=== PATIENT | female | born 1960 | race Caucasian/White ===

== ENCOUNTER → 2016-11-24 | Outpatient (CLI) | payer OTHER ==
[~2016-11-24] MED LIST: ASPIRIN E.C. 8181 MG PO; CALTRATE-600 W600 MG PO; CENTRUM1 TAB PO; ELAVIL100 MG PO; GLUCOPHAGE1000 MG PO; LANTUS100 U/ML SQ; NAPROXEN EC500 MG PO; NO HOME MEDICATIONS; NORCO 325 MG-7.1 TAB PO; TESSALON PERLE100 MG PO; ZESTRIL 5MG5 MG PO; ZOCOR 40MG40 MG PO
== END ==
LOC: SUN.DIA 09:30
DX: E11.65 Type 2 diabetes mellitus with hyperglycemia (principal); Z79.84 Long term (current) use of oral hypoglycemic drugs; Z79.4 Long term (current) use of insulin; E66.9 Obesity, unspecified; Z68.42 Body mass index [BMI] 45.0-49.9, adult; Z71.3 Dietary counseling and surveillance; I10 Essential (primary) hypertension; I51.9 Heart disease, unspecified; I25.10 Atherosclerotic heart disease of native coronary artery without angina pectoris; Z87.891 Personal history of nicotine dependence

== ENCOUNTER → 2016-11-26 | Outpatient (CLI) | payer OTHER ==
[~2016-11-26] VITALS: Ht 162.6 cm; Wt 123.6 kg
[2016-11-26 15:05] VITALS: BP 134/80; PULSE 76
[2016-11-26 15:26] VITALS: BP 134/80; PULSE 76
== END ==
LOC: LIGHT 15:00
DX: E88.81 Metabolic syndrome and other insulin resistance (principal); E11.9 Type 2 diabetes mellitus without complications; E66.01 Morbid (severe) obesity due to excess calories; Z68.42 Body mass index [BMI] 45.0-49.9, adult; I10 Essential (primary) hypertension

== ENCOUNTER → 2016-12-07 | Outpatient (CLI) | payer OTHER | LOC: SUN.DIA 09:35 | DX: E11.65 Type 2 diabetes mellitus with hyperglycemia (principal); E66.9 Obesity, unspecified; Z68.42 Body mass index [BMI] 45.0-49.9, adult; Z79.4 Long term (current) use of insulin; Z79.84 Long term (current) use of oral hypoglycemic drugs; Z71.3 Dietary counseling and surveillance; I10 Essential (primary) hypertension; F17.210 Nicotine dependence, cigarettes, uncomplicated ==

== ENCOUNTER → 2017-02-08 | Outpatient (CLI) | payer OTHER | LOC: SUN.DIA 11:10 | DX: E11.65 Type 2 diabetes mellitus with hyperglycemia (principal); Z68.42 Body mass index [BMI] 45.0-49.9, adult; Z71.3 Dietary counseling and surveillance; I10 Essential (primary) hypertension; Z79.4 Long term (current) use of insulin; Z79.84 Long term (current) use of oral hypoglycemic drugs; F17.210 Nicotine dependence, cigarettes, uncomplicated ==

== ENCOUNTER → 2017-05-18 | Outpatient (CLI) | payer OTHER | LOC: LIGHT 12-10 09:39 → SUN.DIA 14:30 | DX: E11.9 Type 2 diabetes mellitus without complications (principal); Z79.4 Long term (current) use of insulin; I11.9 Hypertensive heart disease without heart failure; E66.9 Obesity, unspecified; Z68.42 Body mass index [BMI] 45.0-49.9, adult; Z71.3 Dietary counseling and surveillance; F17.210 Nicotine dependence, cigarettes, uncomplicated | CPT/HCPCS: G0108 ==

== ENCOUNTER → 2017-09-27 | Outpatient (CLI) | payer BC | LOC: SUN.DIA 09-23 09:09 | DX: E11.9 Type 2 diabetes mellitus without complications (principal); Z79.4 Long term (current) use of insulin; I11.9 Hypertensive heart disease without heart failure; E66.9 Obesity, unspecified; Z68.42 Body mass index [BMI] 45.0-49.9, adult; Z71.3 Dietary counseling and surveillance; F17.210 Nicotine dependence, cigarettes, uncomplicated | CPT/HCPCS: G0108 ==

== ENCOUNTER 2017-12-14 10:27 | Outpatient (RCR) | payer OTHER | END 2018-02-25 09:51 | disposition home or self-care (01) | LOC: WSOH 10:27 | DX: S70.01XA Contusion of right hip, initial encounter (principal); S40.011A Contusion of right shoulder, initial encounter; M54.5 Low back pain; F17.210 Nicotine dependence, cigarettes, uncomplicated; Y04.1XXA Assault by human bite, initial encounter; Y04.2XXA Assault by strike against or bumped into by another person, initial encounter; Y93.F9 Activity, other caregiving; Y92.811 Bus as the place of occurrence of the external cause; Y99.0 Civilian activity done for income or pay; Z79.01 Long term (current) use of anticoagulants; Z88.1 Allergy status to other antibiotic agents ==

== ENCOUNTER → 2017-12-17 | Outpatient (CLI) | payer BC | LOC: MC.RAD 13:16 | DX: Z12.31 Encounter for screening mammogram for malignant neoplasm of breast (principal) ==

== ENCOUNTER → 2018-04-05 | Outpatient (CLI) | payer BC | LOC: SUN.DIA 10:24 | DX: E11.9 Type 2 diabetes mellitus without complications (principal); Z79.4 Long term (current) use of insulin; I11.9 Hypertensive heart disease without heart failure; E66.9 Obesity, unspecified; Z68.42 Body mass index [BMI] 45.0-49.9, adult; Z71.3 Dietary counseling and surveillance; F17.210 Nicotine dependence, cigarettes, uncomplicated | CPT/HCPCS: G0108 ==

== ENCOUNTER 2019-02-18 13:21 | Inpatient (IN) | payer BC ==
[2019-02-18] VITALS (173 sets, daily range): BP systolic 123–139; BP diastolic 67–88; PULSE 93–100; TEMP 98.6–98.9; O2SAT 84–100
[~2019-02-18] VITALS: Ht 162.6 cm; Wt 107.0 kg
[2019-02-18 14:50] LABS: BASO % 0.2 % (0.0-2.0); EOS # 0.2 (0.0-0.7); EOS % 1.8 % (0-4.0); GRAN # 5.4 (1.4-6.5); GRAN % 59.8 % (42.2-75.2); HEMOGLOBIN 11.9 g/dl (12.5-16.0); LYMPH # 2.9 (1.2-3.4); LYMPH % 32.3 % (20.0-51.0); MEAN CELL VOLUME 93 fl (80.0-100.0); MEAN CORPUSCULAR HEMOGLOBIN 30 pg (27.0-31.0); MEAN CORPUSCULAR HGB CONC 32 g/dl (33.0-37.0); MONO # 0.5 (0.1-0.6); MONO % 5.6 % (1.7-9.3); PLATELET COUNT 288 K/mm3 (130-400); RED BLOOD COUNT 3.96 M/mm3 (4.10-5.30); REDCELL DISTRIBUTION WIDTH-CV 15.2 % (11.5-14.5)
[2019-02-18 14:52] LABS: HEMATOCRIT 36.7 % (37.0-47.0); INR 1.2 (0.8-3.0); PROTHROMBIN TIME 13.2 SECONDS (9.7-12.8)
[2019-02-18] MEDS ORDERED: BIOTIN5000 MCG PO (14:58)
[2019-02-18 14:59] LABS: ALBUMIN 3.7 gm/dL (3.5-5.0); BILIRUBIN,TOTAL 0.4 mg/dL (0.0-1.0); C-REACTIVE PROTEIN 2.2 mg/dL (0.0-0.9); CALCIUM 9.7 mg/dL (8.4-10.2); CREATININE, serum 0.69 (0.52-1.25); POTASSIUM 4.3 mmol/L (3.4-5.0); TOTAL PROTEIN 7.3 gm/dL (6.4-8.2)
[2019-02-18] MEDS ORDERED: GLUCOTROL10 MG PO (14:59)
[2019-02-18 15:08] LABS: TROPONIN-I 0.026 ng/mL (0.000-0.035)
--- NOTE | 2019-02-18 18:00 | NUR ---
Pt arrived to room at this time. Oriented to room and ICU policies. Pt will call order for food. Pt is very chatty, able to sit at side of bed and talk non stop without getting short of breath. Up to commode SBA, urine yellow and clear from lasix. Pain is 2/10 to L flank, lower chest area. Nitro gtt at 10 mcg/min to LH. Will give bedside shift report to nightshift nurse who will resume care.
[2019-02-18] MEDS ORDERED: [UNRECOGNIZED DRUG - OTHER] PO (18:12)
[2019-02-18] MEDS ORDERED: GOLDEN SEAL RO325 MG PO (18:13)
[2019-02-18] MEDS ORDERED: MELATONIN5 M1 PO (20:08)
[2019-02-19] VITALS (802 sets, daily range): BP systolic 103–145; BP diastolic 50–78; PULSE 78–93; TEMP 97.8–99.9; O2SAT 76–100
--- NOTE | 2019-02-19 04:08 | NUR ---
SPO2 88% 2 LPM BI TO HOME CPAP. INCREASED TO 3 LPM.
[2019-02-19 05:57] LABS: BASO % 0.2 % (0.0-2.0); EOS # 0.2 (0.0-0.7); EOS % 1.9 % (0-4.0); GRAN # 4.3 (1.4-6.5); GRAN % 45.4 % (42.2-75.2); HEMOGLOBIN 11.2 g/dl (12.5-16.0); LYMPH # 4.4 (1.2-3.4); LYMPH % 45.8 % (20.0-51.0); MEAN CELL VOLUME 92 fl (80.0-100.0); MEAN CORPUSCULAR HEMOGLOBIN 30 pg (27.0-31.0); MEAN CORPUSCULAR HGB CONC 32 g/dl (33.0-37.0); MEAN PLATELET VOLUME 10.3 fl (7.4-10.4); MONO # 0.6 (0.1-0.6); MONO % 6.3 % (1.7-9.3); PLATELET COUNT 275 K/mm3 (130-400); RED BLOOD COUNT 3.77 M/mm3 (4.10-5.30); REDCELL DISTRIBUTION WIDTH-CV 15.3 % (11.5-14.5)
[2019-02-19 06:00] LABS: HEMATOCRIT 34.6 % (37.0-47.0)
[2019-02-19 06:07] LABS: CALCIUM 9.4 mg/dL (8.4-10.2); CHOLESTEROL RISK RATIO 5.8; CREATININE, serum 0.82 (0.52-1.25); POTASSIUM 3.3 mmol/L (3.4-5.0)
[2019-02-19 06:25] LABS: TROPONIN-I 0.046 ng/mL (0.000-0.035)
--- NOTE | 2019-02-19 06:25 | NUR ---
CRITICAL OF TROPONIN 0.046 REPORTED TO MARY VILLARREAL. NO NEW ORDERS GIVEN AT THIS TIME.
--- NOTE | 2019-02-19 07:15 | NUR ---
Report received from ROBERT Catherine. Pt in bed resting, states she did not sleep much and wants to rest a bit longer, leonel lcontinue to monitor.
--- NOTE | 2019-02-19 10:30 | NUR ---
Assessment charted. Pt tired from lack of sleep but states she feels better todya. has pain in L flank/chest that "doesn't go away, its a constant numbness pain". Dr. Morgan here and discussed plan for heart cath tomorrow, pt agreeable. Nitro gtt continues at 10 mcg. Pt denies needs, will continue to monitor.
--- NOTE | 2019-02-19 13:29 | NUR ---
Patient lives at home with family in [place], [place] and she plans to return home upon discharge. Patient's family is supportive and her daughter (Noemi) contact number is [phone]. 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 Patient's primary care physician is Dr. Juaquin Phillips, her pharmacy is [facility], and she does have advance directives completed. No further needs at this time and social servies will follow as needed.
--- NOTE | 2019-02-19 18:50 | NUR ---
Pt up at side of bed to eat and doing well. Still gets short of breath with exertion when getting up to go to bathroom. Has continuously had high blood sugars that is being controlled with Novolog. Pt had a bed bath independently with clean sheets. Will continue to monitor until giving bedside report to nightshift nurse.
[2019-02-20] VITALS (759 sets, daily range): BP systolic 97–133; BP diastolic 55–103; PULSE 71–91; TEMP 97.5–99.2; O2SAT 60–100
[2019-02-20 05:01] LABS: BASO % 0.3 % (0.0-2.0); EOS # 0.2 (0.0-0.7); EOS % 1.9 % (0-4.0); GRAN # 5.5 (1.4-6.5); LYMPH % 38.5 % (20.0-51.0); MEAN CELL VOLUME 93 fl (80.0-100.0); MEAN CORPUSCULAR HEMOGLOBIN 30 pg (27.0-31.0); MEAN CORPUSCULAR HGB CONC 33 g/dl (33.0-37.0); MEAN PLATELET VOLUME 9.9 fl (7.4-10.4); MONO # 0.6 (0.1-0.6); MONO % 5.9 % (1.7-9.3); PLATELET COUNT 258 K/mm3 (130-400); RED BLOOD COUNT 3.63 M/mm3 (4.10-5.30); REDCELL DISTRIBUTION WIDTH-CV 15.3 % (11.5-14.5)
[2019-02-20 05:03] LABS: HEMATOCRIT 33.8 % (37.0-47.0)
[2019-02-20 05:18] LABS: CALCIUM 9.1 mg/dL (8.4-10.2); CREATININE, serum 0.81 (0.52-1.25); MAGNESIUM 1.8 mg/dL (1.6-2.3)
--- NOTE | 2019-02-20 07:20 | NUR ---
Report received from ROBERT Catherine.
--- NOTE | 2019-02-20 08:00 | NUR ---
Assessment completed. Pt resting in bed. Denies any pain. Remains on nitro gtt and IVF. No complaints at this time. Discussed plan of care r/t NPO status for left heart cath today. Pt verbalized understanding. Call light in reach.
--- NOTE | 2019-02-20 08:17 | NUR ---
Paged environmental services technician at 0749 and again at 0816 for elevated blood sugar. Waiting jawbone puller back.
--- NOTE | 2019-02-20 11:34 | NUR ---
First visit from the senior insight manager. No needs right now.
--- NOTE | 2019-02-20 12:26 | NUR ---
Pt's dtr brought in DPOA papers. Left message with Doris, from social work to see pt. Pt denies any CP, sitting up in bed talking with dtr. VSS. Remains on IVF and nitroglycerin gtt.
--- NOTE | 2019-02-20 12:49 | NUR ---
Pt left ICU room to shellfish processing laborer via bed with Nikhil labor contract analyst RN. Pt denies any CP, remains on nitroglycerin gtt. Pt's dtr to shellfish processing laborer waiting area.
--- NOTE | 2019-02-20 13:32 | NUR ---
ALL MEDICATIONS GIVEN VORB WITH MD. SEE MERGE FOR ALL MEDICATION ADMIN TIMES. SEE MERGE FOR ALL RASS ASSESSMENTS DURING PROCEDURE. +2 RADIAL PULSE. POSITIVE BARBEAU'S TEST IN THE RIGHT WRIST.
--- NOTE | 2019-02-20 14:25 | NUR ---
Report received from Nikhil, slab off mill tender RN at 1401. Pt arrived to ICU bed 3 via bed. A/Ox3. Denies any pain. Right wrist with TR band on, inflated with 14cc air. No bleeding or hematoma present. Pt's dtr at bedside. Discussed plan of care r/t cardiac cath post checks and TR band. Pt verbalized understanding. CAll light in reach.
--- NOTE | 2019-02-20 14:52 | NUR ---
The patient was interested in completing a DPOA-HC and Living Will. ROSELINE provided the forms. ROSELINE and the patient's RN, Mary, witnessed the patient sign. The patient designated her daughter, Karlie, as her DPOA-HC. ROSELINE provided the patient with the original and some copies. A copy of both forms were placed in the patient's chart.
--- NOTE | 2019-02-20 16:40 | NUR ---
5cc of air taken out of right wrist TR band. Bleeding noted from insertion when air released. 5cc of air put back in TR band. Bleeding stopped. right radial pulse palpable. Will monitor.
--- NOTE | 2019-02-20 19:30 | NUR ---
Report given to ROBERT Cantu.
--- NOTE | 2019-02-20 21:00 | NUR ---
BANDAIDE APPLIED TO RIGHT RADIAL.
[2019-02-21] VITALS (540 sets, daily range): BP systolic 105–129; BP diastolic 54–67; PULSE 2–79; TEMP 98–98.8; O2SAT 79–100
[2019-02-21 05:42] LABS: BASO % 0.4 % (0.0-2.0); EOS # 0.3 (0.0-0.7); EOS % 3.5 % (0-4.0); GRAN # 4.2 (1.4-6.5); GRAN % 50.1 % (42.2-75.2); HEMATOCRIT 36.7 % (37.0-47.0); HEMOGLOBIN 11.9 g/dl (12.5-16.0); LYMPH # 3.3 (1.2-3.4); LYMPH % 38.8 % (20.0-51.0); MEAN CELL VOLUME 92 fl (80.0-100.0); MEAN CORPUSCULAR HEMOGLOBIN 30 pg (27.0-31.0); MEAN CORPUSCULAR HGB CONC 32 g/dl (33.0-37.0); MEAN PLATELET VOLUME 10.2 fl (7.4-10.4); MONO # 0.6 (0.1-0.6); MONO % 6.8 % (1.7-9.3); PLATELET COUNT 289 K/mm3 (130-400); REDCELL DISTRIBUTION WIDTH-CV 14.9 % (11.5-14.5)
[2019-02-21 05:55] LABS: ALBUMIN 3.7 gm/dL (3.5-5.0); BILIRUBIN,TOTAL 0.5 mg/dL (0.0-1.0); CREATININE, serum 0.78 (0.52-1.25); POTASSIUM 4.1 mmol/L (3.4-5.0); TOTAL PROTEIN 7.3 gm/dL (6.4-8.2)
--- NOTE | 2019-02-21 07:03 | NUR ---
Report report recieved from ROBERT Cantu. Patient participates and denies needs at this time. She has removed her CPAP and maintains O2 saturations >94% on room air at this time. Will continue to monitor. Care assumed.
--- NOTE | 2019-02-21 12:37 | NUR ---
Dr. Walker rounds on patient at this time. Orders recieved for exercise oximetry and RT called. POC discussed to include potential discharge home pending exox results.
[2019-02-21] MEDS ORDERED: NICODERM C7 MG/PATCH TD (14:14)
[2019-02-21] MEDS ORDERED: ASPIRIN E.C. 8181 MG PO (14:14)
[2019-02-21] MEDS ORDERED: TOPROL XL 25MG25 MG PO (14:14)
[2019-02-21] MEDS ORDERED: ENTRESTO 24 MG1 EACH PO (14:14)
[2019-02-21] MEDS ORDERED: LIPITOR 40MG TA40 MG PO (14:14)
[2019-02-21] MEDS ORDERED: LASIX 20MG TABL20 MG PO (14:15)
[2019-02-21] MEDS ORDERED: JANUVIA 100MG100 MG PO (14:15)
--- NOTE | 2019-02-21 14:33 | NUR ---
ROSELINE met with patient about home oxygen need. Patient chose [facility] supply the oxygen and signed choice form. ROSELINE faxed order to [facility].
[2019-02-21] MEDS ORDERED: PROAIR HFA0.09 MG/AC IH (14:43)
--- NOTE | 2019-02-21 17:40 | NUR ---
Patient transported to private car for discharge via . Belongings sent with. Prior discharge education completed with patient and family who verbalize understanding.
== END 2019-02-21 17:40 | disposition home or self-care (01) | DRG 286 ==
LOC: COL.ER 13:21 → ICU 16:40
PROVIDERS: Emergency Medicine; Physician Assistant; ADMIT Hospitalist
PROC: B2111ZZ Fluoroscopy of Multiple Coronary Arteries using Low Osmolar Contrast (ICD-10-PCS; principal; 2019-02-20)
PROC: B2151ZZ Fluoroscopy of Left Heart using Low Osmolar Contrast (ICD-10-PCS; 2019-02-20)
DX: I42.0 Dilated cardiomyopathy (principal); I50.23 Acute on chronic systolic (congestive) heart failure; J96.01 Acute respiratory failure with hypoxia; Z68.42 Body mass index [BMI] 45.0-49.9, adult; R07.89 Other chest pain; I11.0 Hypertensive heart disease with heart failure; E11.65 Type 2 diabetes mellitus with hyperglycemia; E66.01 Morbid (severe) obesity due to excess calories; F17.210 Nicotine dependence, cigarettes, uncomplicated; G47.33 Obstructive sleep apnea (adult) (pediatric); M79.7 Fibromyalgia; M54.42 Lumbago with sciatica, left side; M54.41 Lumbago with sciatica, right side; G89.29 Other chronic pain; E78.5 Hyperlipidemia, unspecified; E87.6 Hypokalemia; I44.7 Left bundle-branch block, unspecified
CPT/HCPCS: 99222-AI; 99232-AI; 99239; C1769; C1887; C1894; J1644; J1815; J1940; J2250; J3010; J7030; Q9967

== ENCOUNTER → 2019-06-02 | Outpatient (CLI) | payer BC ==
[~2019-06-02] MED LIST changes: +BIOTIN5000 MCG PO; +ENTRESTO 24 MG1 EACH PO; +GLUCOTROL10 MG PO; +GOLDEN SEAL RO325 MG PO; +JANUVIA 100MG100 MG PO; +LASIX 20MG TABL20 MG PO; +LIPITOR 40MG TA40 MG PO; +MELATONIN5 M1 PO; +NICODERM C7 MG/PATCH TD; +PROAIR HFA0.09 MG/AC IH; +TOPROL XL 25MG25 MG PO; +[UNRECOGNIZED DRUG - OTHER] PO
== END ==
LOC: COL.RAD 07:58
DX: M53.3 Sacrococcygeal disorders, not elsewhere classified (principal)
CPT/HCPCS: G0260; J3301

== ENCOUNTER → 2019-07-12 | Outpatient (CLI) | payer OTHER | LOC: COL.PUL 07:46 | DX: Z02.71 Encounter for disability determination (principal); M47.816 Spondylosis without myelopathy or radiculopathy, lumbar region; M17.12 Unilateral primary osteoarthritis, left knee; Z87.891 Personal history of nicotine dependence; Z77.22 Contact with and (suspected) exposure to environmental tobacco smoke (acute) (chronic) ==

== ENCOUNTER 2019-07-18 15:30 | Outpatient (RCR) | payer BC | END 2019-07-27 10:04 | disposition home or self-care (01) | LOC: WSC 15:30 | DX: M53.3 Sacrococcygeal disorders, not elsewhere classified (principal) ==

== ENCOUNTER → 2019-08-24 | Outpatient (CLI) | payer BC | LOC: COL.PUL 07-12 08:00 | DX: Z02.71 Encounter for disability determination (principal); R06.02 Shortness of breath; Z87.891 Personal history of nicotine dependence; Z77.22 Contact with and (suspected) exposure to environmental tobacco smoke (acute) (chronic); R94.2 Abnormal results of pulmonary function studies ==

== ENCOUNTER 2019-10-12 07:57 | Day surgery (SDC) | payer BC ==
[~2019-10-12] VITALS: Ht 162.6 cm; Wt 135.4 kg
[2019-10-12] VITALS (7 sets, daily range): BP systolic 110–147; BP diastolic 55–97; PULSE 76–109; TEMP 98.2–98.8
[2019-10-12] MEDS ORDERED: NICODERM C21 MG/PATC TD (09:26)
[2019-10-12 09:49] LABS: HEMATOCRIT 39.1 % (37.0-47.0); HEMOGLOBIN 12.7 g/dl (12.5-16.0); MEAN CELL VOLUME 92 fl (80.0-100.0); MEAN CORPUSCULAR HEMOGLOBIN 30 pg (27.0-31.0); MEAN CORPUSCULAR HGB CONC 33 g/dl (33.0-37.0); MEAN PLATELET VOLUME 9.9 fl (7.4-10.4); PLATELET COUNT 381 K/mm3 (130-400); RED BLOOD COUNT 4.25 M/mm3 (4.10-5.30); REDCELL DISTRIBUTION WIDTH-CV 14.1 % (11.5-14.5)
[2019-10-12 09:55] LABS: PROTHROMBIN TIME 11.9 SECONDS (9.7-12.8)
[2019-10-12 10:01] LABS: CALCIUM 10.7 mg/dL (8.4-10.2); CREATININE, serum 0.84 (0.52-1.25); POTASSIUM 3.9 mmol/L (3.4-5.0)
[2019-10-12] MEDS ORDERED: PROAIR HFA0.09 MG/AC IH (10:45)
[2019-10-12] MEDS ORDERED: ANORO IH (10:46)
[2019-10-12] MEDS ORDERED: LIPITOR 40MG TA40 MG PO (10:58)
[2019-10-12] MEDS ORDERED: ENTRESTO 49 MG1 EACH PO (11:05)
[2019-10-12] MEDS ORDERED: LASIX 20MG TABL20 MG PO (11:06)
[2019-10-12] MEDS ORDERED: FLONASEALLERGY NS (11:06)
--- NOTE | 2019-10-12 11:26 | NUR ---
SEE MERGE DOCUMENTATION FOR MEDICATION ADMINISTRATION TIMES AND INTRA/POST PROCEDURE SEDATION ASSESSMENTS.
[2019-10-12] MEDS ORDERED: BASAGLAR K100 UNIT/1 SQ (11:29)
[2019-10-12] MEDS ORDERED: JANUVIA 100MG100 MG PO (11:30)
[2019-10-12] MEDS ORDERED: MOBIC15 MG PO (11:31)
[2019-10-12] MEDS ORDERED: CLARITIN 1010 MG/TAB PO (11:31)
[2019-10-12] MEDS ORDERED: TOPROL XL 25MG25 MG PO (11:33)
[2019-10-12] MEDS ORDERED: VITAMINC1000TA PO (11:33)
[2019-10-12] MEDS ORDERED: VITAMIND3 5000 PO (11:34)
--- NOTE | 2019-10-12 17:31 | NUR ---
Pt resting in bed, watching movies on phone. Pt denies pain. Incision site to left upper chest continues to be without complications.
--- NOTE | 2019-10-12 20:40 | NUR ---
Patient assessed at this time. Alert and oriented x 4, and able to make needs known. Reported level 7 pain to left chest/shoulder. Given PRN [place] as requested for pain. Periphreral IV flushed. Site is without redness, warmth, swelling, and pain. Dressing to left chest is CDI. Sling to left arm. Reports SOB and dyspnea with exertion. LS CTA in upper lobes, diminished in lower. Respirations even and unlabored at rest. Has CPAP on. HRR. Telemetry in place-paced. Capillary refill less than 3 seconds. Non-tenting skin turgor. BSAx4. Abdomen soft and non-tender. 2+ edema BLE. Voices no questions, needs, or concerns at this time. Resting in bed with call light within reach.
--- NOTE | 2019-10-13 05:36 | NUR ---
Patient has been resting in bed with eyes closed throughout the night. Did wake up and complain of pain to left shoulder/chest area. Given PRN APAP as requested. Voices no further questions, needs, or concerns at this time. In bed with call light within reach. Dressing to left chest CDI. Sling to left arm.
[2019-10-13 06:34] LABS: BASO % 0.2 % (0.0-2.0); EOS # 0.2 (0.0-0.7); EOS % 1.9 % (0-4.0); GRAN # 4.7 (1.4-6.5); GRAN % 53.8 % (42.2-75.2); HEMATOCRIT 37.5 % (37.0-47.0); HEMOGLOBIN 12.1 g/dl (12.5-16.0); LYMPH # 3.3 (1.2-3.4); LYMPH % 37.1 % (20.0-51.0); MEAN CELL VOLUME 92 fl (80.0-100.0); MEAN CORPUSCULAR HEMOGLOBIN 30 pg (27.0-31.0); MEAN CORPUSCULAR HGB CONC 32 g/dl (33.0-37.0); MONO # 0.6 (0.1-0.6); MONO % 6.5 % (1.7-9.3); RED BLOOD COUNT 4.06 M/mm3 (4.10-5.30); REDCELL DISTRIBUTION WIDTH-CV 14.3 % (11.5-14.5)
[2019-10-13 06:44] LABS: CALCIUM 9.5 mg/dL (8.4-10.2); CREATININE, serum 0.82 (0.52-1.25)
[2019-10-13 07:03] LABS: PLATELET COUNT 274 K/mm3 (130-400)
[2019-10-13 07:05] LABS: PROTHROMBIN TIME 12.1 SECONDS (9.7-12.8)
[2019-10-13 07:48] VITALS: BP 105/46; PULSE 72; TEMP 98
--- NOTE | 2019-10-13 07:50 | NUR ---
Seen patient awake lying on bed. Alert and conscious. Ultrasound for pacemaker placement ongoing. Patient verbalized of pain on her right shoulder radiating to her hips with a pain score of 9.95. Patient claimed her pain is because of her sciatica. PRN [place] given. Peripheral line noted on her left antecubital. No redness and infiltration noted. With dressing on left chest for her pacemaker. Clean, dry and intact. On left arm sling.
--- NOTE | 2019-10-13 09:15 | NUR ---
Rechecked patient's pain and she verbalized there's still pain but much more tolerable. Pain score is 7.5. No other complains noted.
--- NOTE | 2019-10-13 09:18 | NUR ---
SW met with the patient to discuss discharge plan. The patient lives in [place] with her 39 year-old son, Orlando. She states that he has Down Syndrome and that she is his guardian. She states that he is safe home alone. Her daughter, Karlie Aguirre (ph#[phone]), lives three minutes away from them and the patient states that she is very helpful. She reports independence with ADLs and has a cane, bipap, and nocturnal oxygen from [facility]. The patient's PCP is Dr. Juaquin Phillips and she receives her medications at [facility]. At this time, she reports no difficulties obtaining her meds. She states that as of December 09, she will be losing her insurance and will plan to switch primary care to either [facility]. She also states that she has applied for Medicaid and disability, but has not yet heard if she has been approved or not. SW consulted Financial Counselor, Eze. The patient's DPOA-HC is in EMR and it is her daughter, Karlie. The patient plans to return home with her son upon discharge. No additional needs at this time.
--- NOTE | 2019-10-13 10:05 | NUR ---
Seen by Dr. Geronimo. Dressing on pacemaker removed. Noted to be clean, no discharges, intact and dry.
[2019-10-13] MEDS ORDERED: CEPHALEXIN500 M1 PO (10:59)
--- NOTE | 2019-10-13 11:35 | NUR ---
Seen patient lying on bed, awake. Verbalized pain decresed to 3/10 and feels better. Discharge instructions given. IV site and tele leads removed. Awaiting for her daughter to pick her up for discharge.
--- NOTE | 2019-10-13 12:32 | NUR ---
Assisted patient for discharge via wheelchair. No complaints noted. States she feels better with some pain but tolerable.
== END 2019-10-13 12:43 | disposition home or self-care (01) ==
LOC: COL.CAR 07:57 → MEDICAL 14:18 → COL.CAR 10-13 12:43
PROVIDERS: Internal Medicine Cardiovascular Disease; Nurse Practitioner
DX: I11.0 Hypertensive heart disease with heart failure (principal); I50.22 Chronic systolic (congestive) heart failure; F17.210 Nicotine dependence, cigarettes, uncomplicated; E11.9 Type 2 diabetes mellitus without complications; Z79.84 Long term (current) use of oral hypoglycemic drugs; E78.5 Hyperlipidemia, unspecified; Z79.899 Other long term (current) drug therapy; Z86.61 Personal history of infections of the central nervous system; F41.9 Anxiety disorder, unspecified; M19.90 Unspecified osteoarthritis, unspecified site; Z83.3 Family history of diabetes mellitus; Z80.9 Family history of malignant neoplasm, unspecified; Z82.49 Family history of ischemic heart disease and other diseases of the circulatory system; Z82.3 Family history of stroke
CPT/HCPCS: OP; J0690; J1200; J2250; J3010; J7030; Q9967

== ENCOUNTER 2019-11-01 15:30 | Emergency (ER) | payer BC ==
[~2019-11-01] VITALS: Ht 162.6 cm; Wt 138.2 kg
[~2019-11-01 15:30] MED LIST changes: +ANORO IH; +BASAGLAR K100 UNIT/1 SQ; +CEPHALEXIN500 M1 PO; +CLARITIN 1010 MG/TAB PO; +ENTRESTO 49 MG1 EACH PO; +FLONASEALLERGY NS; +MOBIC15 MG PO; +NICODERM C21 MG/PATC TD; +VITAMINC1000TA PO; +VITAMIND3 5000 PO
[2019-11-01 16:00] LABS: BASO % 0.1 % (0.0-2.0); EOS # 0.2 (0.0-0.7); EOS % 2.3 % (0-4.0); GRAN % 55.4 % (42.2-75.2); HEMATOCRIT 37.2 % (37.0-47.0); HEMOGLOBIN 12.2 g/dl (12.5-16.0); LYMPH # 3.2 (1.2-3.4); LYMPH % 35.5 % (20.0-51.0); MEAN CELL VOLUME 92 fl (80.0-100.0); MEAN CORPUSCULAR HEMOGLOBIN 30 pg (27.0-31.0); MEAN CORPUSCULAR HGB CONC 33 g/dl (33.0-37.0); MEAN PLATELET VOLUME 9.3 fl (7.4-10.4); MONO # 0.5 (0.1-0.6); PLATELET COUNT 278 K/mm3 (130-400); RED BLOOD COUNT 4.06 M/mm3 (4.10-5.30); REDCELL DISTRIBUTION WIDTH-CV 13.9 % (11.5-14.5)
[2019-11-01 16:08] LABS: ALBUMIN 4.2 gm/dL (3.5-5.0); BILIRUBIN,TOTAL 0.2 mg/dL (0.0-1.0); CALCIUM 9.3 mg/dL (8.4-10.2); CREATININE, serum 0.76 (0.52-1.25); POTASSIUM 4.2 mmol/L (3.4-5.0)
[2019-11-01 17:33] LABS: COLLECTION METHOD CLEAN CATCH
[2019-11-01 17:38] LABS: PH 5 (5-8); SQUAMOUS EPITHELIAL None Seen /hpf; URINE APPEARANCE Clear; URINE BACTERIA None Seen /hpf; URINE BILIRUBIN Negative (NEGATIVE); URINE BLOOD Negative (NEGATIVE); URINE COLOR Colorless; URINE GLUCOSE Negative (NEGATIVE); URINE KETONE Negative (NEGATIVE); URINE LEUKOCYTE ESTERASE Negative (NEGATIVE); URINE NITRATE Negative (NEGATIVE); URINE PROTEIN(semi-quant) Negative (NEGATIVE); URINE RBC None Seen /hpf; URINE UROBILINOGEN Negative (NEGATIVE)
[2019-11-01] MEDS ORDERED: K-TAB10 PO (18:38)
[2019-11-01] MEDS ORDERED: NORCO 325 MG-51 TAB PO (18:45)
[2019-11-01 18:56] VITALS: BP 122/74; PULSE 82; TEMP 98.4
== END 2019-11-01 18:55 | disposition home or self-care (01) ==
LOC: COL.ER 15:30
PROVIDERS: Emergency Medicine
DX: I50.9 Heart failure, unspecified (principal); M54.42 Lumbago with sciatica, left side; I25.5 Ischemic cardiomyopathy; Z98.890 Other specified postprocedural states
CPT/HCPCS: J1170; J1940

== ENCOUNTER → 2019-11-02 | Outpatient (CLI) | payer BC ==
[~2019-11-02] MED LIST changes: +K-TAB10 PO; +NORCO 325 MG-51 TAB PO
== END ==
LOC: COL.VAS 10:58
DX: R60.0 Localized edema (principal)

== ENCOUNTER 2020-07-12 07:17 | Day surgery (SDC) | payer BC, MEDICAID ==
[~2020-07-12] VITALS: Ht 165.1 cm; Wt 133.1 kg
[2020-07-12 07:54] VITALS: BP 122/57; PULSE 83; TEMP 96.9
[2020-07-12] MEDS ORDERED: TOPROL XL 25MG25 MG PO (08:33)
[2020-07-12] MEDS ORDERED: NATURAL POTASS595 MG PO (08:34)
[2020-07-12] MEDS ORDERED: JANUVIA 100MG100 MG PO (08:36)
[2020-07-12] MEDS ORDERED: ENTRESTO 49 MG1 EACH PO (08:37)
[2020-07-12] MEDS ORDERED: LASIX 20MG TABL20 MG PO (08:37)
[2020-07-12] MEDS ORDERED: BASAGLAR K100 UNIT/1 SQ (08:38)
[2020-07-12] MEDS ORDERED: LIPITOR 40MG TA40 MG PO (08:38)
[2020-07-12] MEDS ORDERED: GLUCOTROL10 MG PO (08:39)
[2020-07-12] MEDS ORDERED: AMITRIPTYLINE H75 M1 PO (08:40)
[2020-07-12] MEDS ORDERED: AMITRIPTYLINE H25 M1 PO (08:40)
[2020-07-12] MEDS ORDERED: MELATONIN1 MG PO (08:41)
[2020-07-12] MEDS ORDERED: PROAIR HFA0.09 MG/AC IH (08:42)
[2020-07-12] MEDS ORDERED: MERIBIN5 MG PO (08:42)
[2020-07-12] MEDS ORDERED: VITAMIND3 5000 PO (08:43)
[2020-07-12] MEDS ORDERED: VITAMINC1000TA PO (08:43)
[2020-07-12] MEDS ORDERED: CLARITIN 1010 MG/TAB PO (08:44)
[2020-07-12] MEDS ORDERED: CALCIUM 600MG+D1 TAB PO (08:45)
[2020-07-12] MEDS ORDERED: MULTIPLE VITAMI1 TA5 PO (08:45)
[2020-07-12 09:35] VITALS: BP 147/65; PULSE 88; TEMP 97.3
--- NOTE | 2020-07-12 09:35 | NUR ---
Patient arrives to [facility] [place] [facility] via cart, accompanied by Endo ROBERT Ziegler. She is alert and oriented. She transfers to the chair in her room with 1:1 assist. Monitoring is applied -VSS and WNL on room air. Denies pain or nausea. Requests a muffin/coffee to eat/drink. Will return.
[2020-07-12 09:50] VITALS: BP 140/73; PULSE 76
--- NOTE | 2020-07-12 09:50 | NUR ---
VSS and WNL on room air. Patient ambulates to the restroom with standby assist and steady gait. Denies pain or nausea. Assisted her to change to a clean gown/get cleaned up after her procedure. Dr. Jordan comes to the bedside and speaks with her. BG is rechecked, result [id number], Jona Wall BOTTOM BRUSHER Is notified and gives not further orders. She is given a coffee and a muffin per request.
[2020-07-12 10:05] VITALS: BP 136/64; PULSE 86
--- NOTE | 2020-07-12 10:20 | NUR ---
Patient has met discharge criteria. Discharge instructions are discussed. SHe denies any questions and verbalizes understanding. PIV Is removed with catheter intact and hemostasis achieved. She changes to her clothing independently. SHe is escorted to the exit via wheelchair and discharged to home with ride in private vehicle.
== END 2020-07-12 10:20 | disposition home or self-care (01) ==
LOC: SDCO
DX: Z12.11 Encounter for screening for malignant neoplasm of colon (principal); K57.30 Diverticulosis of large intestine without perforation or abscess without bleeding; E78.00 Pure hypercholesterolemia, unspecified; E11.9 Type 2 diabetes mellitus without complications; F17.210 Nicotine dependence, cigarettes, uncomplicated; G47.33 Obstructive sleep apnea (adult) (pediatric); I11.0 Hypertensive heart disease with heart failure; I50.32 Chronic diastolic (congestive) heart failure; G89.29 Other chronic pain; F41.9 Anxiety disorder, unspecified; F32.9 Major depressive disorder, single episode, unspecified; Z91.048 Other nonmedicinal substance allergy status; Z88.1 Allergy status to other antibiotic agents; Z88.8 Allergy status to other drugs, medicaments and biological substances; Z85.3 Personal history of malignant neoplasm of breast
CPT/HCPCS: J2704; J7030

== ENCOUNTER → 2021-05-26 | Outpatient (CLI) | payer MEDICAID ==
[~2021-05-26] MED LIST changes: +AMITRIPTYLINE H25 M1 PO; +AMITRIPTYLINE H75 M1 PO; +CALCIUM 600MG+D1 TAB PO; +MELATONIN1 MG PO; +MERIBIN5 MG PO; +MULTIPLE VITAMI1 TA5 PO; +NATURAL POTASS595 MG PO
== END ==
LOC: DIA.ED 07:46
DX: E11.65 Type 2 diabetes mellitus with hyperglycemia (principal); Z79.4 Long term (current) use of insulin; E78.5 Hyperlipidemia, unspecified; I10 Essential (primary) hypertension
CPT/HCPCS: G0108

== ENCOUNTER 2024-06-25 18:20 | Emergency (ER) | payer SELFPAY ==
[~2024-06-25] VITALS: Ht 165.1 cm; Wt 118.2 kg
[2024-06-25 18:26] VITALS: TEMP 97.1
[2024-06-25] MEDS ORDERED: dexAMETHasone 10 MG/ML VIAL IV ONE (18:45)
[2024-06-25] MEDS ORDERED: diphenhydrAMINE 50 MG/ML 1 ML VIAL IV ONE (18:45)
[2024-06-25 18:51] LABS: BASO % 0.3 % (0.0-2.0); EOS # 0.4 K/mm3 (0.0-0.7); EOS % 3.7 % (0.0-4.0); GRAN # 5.9 K/mm3 (1.4-6.5); GRAN % 54.1 % (42.2-75.2); HEMATOCRIT 41.8 % (37.0-47.0); HEMOGLOBIN 13.7 g/dl (12.5-16.0); LYMPH % 36.6 % (20.0-51.0); MEAN CELL VOLUME 90 fl (80.0-100.0); MEAN CORPUSCULAR HEMOGLOBIN 30 pg (27-31); MEAN CORPUSCULAR HGB CONC 33 g/dl (33.0-37.0); MEAN PLATELET VOLUME 9.3 fl (7.4-10.4); MONO # 0.5 K/mm3 (0.1-0.6); MONO % 4.9 % (1.7-9.3); PLATELET COUNT 340 K/mm3 (130-400); RED BLOOD COUNT 4.63 M/mm3 (4.10-5.30); REDCELL DISTRIBUTION WIDTH-CV 15.2 % (11.5-14.5)
[2024-06-25 19:19] LABS: ALBUMIN 3.6 g/dL (3.4-4.8); BILIRUBIN,TOTAL 0.3 mg/dL (0.2-1.2); CALCIUM 9.7 mg/dL (8.4-10.2); CREATININE, serum 0.99 mg/dL (0.57-1.11); POTASSIUM 3.9 mEq/L (3.5-4.5); TOTAL PROTEIN 7.6 g/dl (6.2-8.1)
[2024-06-25] MEDS ORDERED: PREDNISONE50 MG PO (20:14)
[2024-06-25] MEDS ORDERED: CEPHALEXIN500 M1 PO (20:14)
[2024-06-25] MEDS ORDERED: Home HYDROcodone/Acetaminophen 5/325 MG #4 TABS/PACK PO ONE (20:15)
[2024-06-25] MEDS ORDERED: Ketorolac 15 MG/ML VIAL IV ONE (20:15)
[2024-06-25 20:30] VITALS: BP 137/73; PULSE 78
== END 2024-06-25 20:30 | disposition home or self-care (01) ==
LOC: COL.ER 18:20
PROVIDERS: Emergency Medicine
DX: T78.40XA Allergy, unspecified, initial encounter (principal); L03.90 Cellulitis, unspecified; F17.200 Nicotine dependence, unspecified, uncomplicated; Z88.1 Allergy status to other antibiotic agents
CPT/HCPCS: J1100; J1200; J1885